=== PATIENT | male | born 1940 | race Caucasian/White ===

== ENCOUNTER 2017-07-22 07:15 | Emergency (ER) | payer MEDICARE ==
[~2017-07-22] VITALS: Ht 172.7 cm; Wt 112.5 kg
[~2017-07-22 07:15] MED LIST: ACE3 PO; ADV250/50 INH; AMOX-559 PO; AUG875 PO; CIP500 PO; DOXY-179 PO; DUL100/5PT INH; DUT0.5 PO; FESO8PT PO; FINA5TAB67 PO; FLUT10SP NS; FLUT16SP19 NS; GUAI100G4 PO; HYDR-3503 PO; HYDR-4309 PO; IBU200 PO; IBU800 PO; KET10 PO; LEV500 PO; MECL-111 PO; MECL25TA9 PO; MOMR ENA; ONDA4TAB PO; OXYGENHOME INH; POLY17PO25 PO; PRED20TA6 PO; RANI-324 PO; SCOT TD; TAM4 PO; TAMS0.4C70 PO; TRAZ-163 PO
--- NOTE | 2017-07-22 07:17 | ER Report ---
History and Physical Time Seen By MD: 07:17 HPI/ROS CC: Shortness of breath HPI: 76-year-old male with a past medical history of COPD on oxygen mainly at night but also 20 471 needed, diabetes type II on metformin, BPH, vertigo. Patient has increased shortness of breath over the last week. He is requiring more oxygen use with his home nasal cannula. He presents to the emergency department being able to talk in 2-3 word sentences. His SaO2 is 74% on room air. He denies any fever or chills. He is afebrile in the emergency department. He definitely is with expiratory wheeze. Activity makes it worse rest makes it better. His discomfort level is a 7 out of 10. He denies any chest pain chest pressure, diaphoresis, palpitations. He denies any sick contacts. ROS: 12 point review of systems essentially negative other than what's mentioned in history of present illness. NURSES AND OLD MEDICAL RECORDS: Reviewed PMH: Reviewed SURGICAL HX: Reviewed FAMILY HX: Noncontributory SOCIAL HX: He denies smoking alcohol or illicit drugs. She lives at home and is . VITAL SIGNS: Reviewed CONSTITUTIONAL: 76-year-old male in moderate to severe distress. PHYSICAL EXAM: HEENT: Pupils equal round reactive to light and accommodate, EOMI, tympanic membranes pearly white umbo present with good light reflex. Lips dry mucous membranes moist gums nonbleeding uvula midline and rises equally with phonation, oropharynx noninjected, teeth intact. NECK: Neck supple, thyroid not appreciated, anterior and posterior cervical lymphadenopathy not appreciated. Trachea midline and rises equally with phonation. CARDIAC: S1-S2 regular rate rhythm no murmurs rubs or gallops. LUNGS: Lungs rhonchi bilaterally with expiratory wheezes. Decreased air movement. ABDOMEN: Abdomen soft and obese, nondistended, bowel sounds active in all 4 quadrants, no bruits noted, no CVA tenderness. MUSCULOSKELETAL: Strength 5 out of 5 x 4 extremities, no deformities noted. 2+ bilateral lower leg edema to the knees. NEUROLOGIC: Patient alert and oriented by 3 Allergies: Coded Allergies: cefuroxime (Verified Allergy, Unknown, 07/22/17) Home Meds Active Scripts Levofloxacin 750 Mg Tab (LEVAQUIN 750 MG TAB) 750 Mg Tablet, 750 MG PO QDAY for 10 Days, #10 TAB Prov:HILARIO LANE MD 07/22/17 Prednisone 10 Mg Tab (PREDNISONE 10 MG TAB) 10 Mg Tablet, 50 MG PO QDAY, #47 TAB 50 mg by mouth daily for 3 days then 40 mg by mouth daily for 3 days then 30 mg by mouth daily for 3 days then 20 mg by mouth daily for 3 days then 10 mg by mouth daily for 3 days then 5 mg by mouth daily for 3 days. Prov:HILARIO LANE MD 07/22/17 Reported Medications Metformin Hcl (METFORMIN HCL) 500 Mg Tablet, 1 TAB PO QDAY, TAB 07/22/17 Trazodone Hcl (TRAZODONE HCL) 100 Mg Tablet, 100 MG PO QHS PRN, TAB 01/27/17 Tamsulosin Hcl (TAMSULOSIN HCL) 0.4 Mg Cap.er.24h, 0.4 MG PO QDAY, CAP 01/27/17 Oxygen (OXYGEN) Inha, 0 INH continuous, L 01/27/17 Finasteride (FINASTERIDE) 5 Mg Tablet, 5 MG PO QDAY 01/27/17 Mometasone/Formoterol (DULERA 100 MCG/5 MCG INHALER) 13 Gm Inh, 13 GM INH BID, INH 01/27/17 Discontinued Reported Medications Ranitidine Hcl (ZANTAC) 150 Mg Tablet, 150 MG PO DAILY, TAB 01/27/17 Fesoterodine Fumarate (TOVIAZ) 8 Mg Tabsr, 8 MG PO QDAY 01/27/17 Guaifenesin (MUCINEX) Unknown Strength Gran.pack, PO 01/27/17 Polyethylene Glycol 3350 (MIRALAX) 17 Gm Powd.pack, 17 GM PO, PKT 01/27/17 Discontinued Scripts Fluticasone Prop 50 Mcg Ns (FLONASE 50 MCG NS) 16 Gm [place].susp, 2 SPRAYS NS QDAY for 30 Days, #1 BOT 3 Refills Prov:ANAY NELSON JR, MD 02/22/17 Hx Smoking: Yes Smoking Status: Former Smoker Hx Substance Use Disorder: No Hx Alcohol Use: Yes (RARELY) Constitutional Vital Sign - Last 24 Hours 07/22/17 07/22/17 07/22/17 07/22/17 07:18 07:18 07:46 07:46 Temp 98.6 Pulse 70 63 Resp 30 18 B/P (MAP) 156/82 Pulse Ox 74 96 O2 Delivery Room Air Oxy Mask O2 Flow Rate 3.0 2.0 Medical Decision Making Data Points Result Diagram: 07/22/17 0734 07/22/17 0734 Laboratory Hematology Test 07/22/17 07:34 07/22/17 09:05 Red Blood Count 4.88 M/uL (4.00-5.60) Mean Corpuscular Volume 97.0 fL (80.0-96.0) Mean Corpuscular Hemoglobin 32.6 pg (26.0-33.0) Mean Corpuscular Hemoglobin Concent 33.6 g/dL (32.0-36.0) Red Cell Distribution Width 16.2 % (11.5-14.5) Mean Platelet Volume 8.2 fL (7.2-11.1) Neutrophils (%) (Auto) 62.9 % (39.4-72.5) Lymphocytes (%) (Auto) 21.0 % (17.6-49.6) Monocytes (%) (Auto) 10.1 % (4.1-12.4) Eosinophils (%) (Auto) 4.6 % (0.4-6.7) Basophils (%) (Auto) 1.4 % (0.3-1.4) Nucleated RBC Relative Count (auto) 0.1 /100WBC Neutrophils # (Auto) 3.8 K/uL (2.0-7.4) Lymphocytes # (Auto) 1.3 K/uL (1.3-3.6) Monocytes # (Auto) 0.6 K/uL (0.3-1.0) Eosinophils # (Auto) 0.3 K/uL (0.0-0.5) Basophils # (Auto) 0.1 K/uL (0.0-0.1) Nucleated RBC Absolute Count (auto) 0.00 K/uL Prothrombin Time 13.5 seconds (12.0-14.4) Prothromb Time International Ratio 1.03 Activated Partial Thromboplast Time 31 seconds (23-35) D-Dimer Quantitative (PE/DVT) 0.27 ug/ml (0-0.50) Sodium Level 139 mmol/L (137-145) Potassium Level 4.2 mmol/L (3.5-5.0) Chloride Level 102 mmol/L (98-107) Carbon Dioxide Level 29 mmol/L (22-30) Blood Urea Nitrogen 13 mg/dl (9-21) Creatinine 0.90 mg/dl (0.66-1.25) Glomerular Filtration Rate Calc > 60.0 Random Glucose 128 mg/dl (75-110) Calcium Level 8.9 mg/dl (8.4-10.2) Magnesium Level 1.8 mg/dl (1.7-2.2) Total Bilirubin 1.0 mg/dl (0.2-1.3) Aspartate Amino Transf (AST/SGOT) 21 U/L (0-35) Alanine Aminotransferase (ALT/SGPT) 24 U/L (0-56) Alkaline Phosphatase 53 U/L (0-126) Troponin I < 0.012 ng/ml B-Type Natriuretic Peptide 9 pg/ml (0-100) Total Protein 7.1 gm/dl (6.3-8.2) Albumin 3.5 g/dl (3.5-5.0) Influenza Type A Antigen Negative (NEGATIVE) Influenza Type B Antigen Negative (NEGATIVE) Chemistry Test 07/22/17 07:34 07/22/17 09:05 White Blood Count 6.0 k/uL (4.5-11.0) Red Blood Count 4.88 M/uL (4.00-5.60) Hemoglobin 15.9 g/dL (14.0-18.0) Hematocrit 47.3 % (42.0-52.0) Mean Corpuscular Volume 97.0 fL (80.0-96.0) Mean Corpuscular Hemoglobin 32.6 pg (26.0-33.0) Mean Corpuscular Hemoglobin Concent 33.6 g/dL (32.0-36.0) Red Cell Distribution Width 16.2 % (11.5-14.5) Platelet Count 188 K/uL (150-450) Mean Platelet Volume 8.2 fL (7.2-11.1) Neutrophils (%) (Auto) 62.9 % (39.4-72.5) Lymphocytes (%) (Auto) 21.0 % (17.6-49.6) Monocytes (%) (Auto) 10.1 % (4.1-12.4) Eosinophils (%) (Auto) 4.6 % (0.4-6.7) Basophils (%) (Auto) 1.4 % (0.3-1.4) Nucleated RBC Relative Count (auto) 0.1 /100WBC Neutrophils # (Auto) 3.8 K/uL (2.0-7.4) Lymphocytes # (Auto) 1.3 K/uL (1.3-3.6) Monocytes # (Auto) 0.6 K/uL (0.3-1.0) Eosinophils # (Auto) 0.3 K/uL (0.0-0.5) Basophils # (Auto) 0.1 K/uL (0.0-0.1) Nucleated RBC Absolute Count (auto) 0.00 K/uL Prothrombin Time 13.5 seconds (12.0-14.4) Prothromb Time International Ratio 1.03 Activated Partial Thromboplast Time 31 seconds (23-35) D-Dimer Quantitative (PE/DVT) 0.27 ug/ml (0-0.50) Glomerular Filtration Rate Calc > 60.0 Calcium Level 8.9 mg/dl (8.4-10.2) Magnesium Level 1.8 mg/dl (1.7-2.2) Total Bilirubin 1.0 mg/dl (0.2-1.3) Aspartate Amino Transf (AST/SGOT) 21 U/L (0-35) Alanine Aminotransferase (ALT/SGPT) 24 U/L (0-56) Alkaline Phosphatase 53 U/L (0-126) Troponin I < 0.012 ng/ml B-Type Natriuretic Peptide 9 pg/ml (0-100) Total Protein 7.1 gm/dl (6.3-8.2) Albumin 3.5 g/dl (3.5-5.0) Influenza Type A Antigen Negative (NEGATIVE) Influenza Type B Antigen Negative (NEGATIVE) Coagulation Test 07/22/17 07:34 Prothrombin Time 13.5 seconds Prothromb Time International Ratio 1.03 Activated Partial Thromboplast Time 31 seconds D-Dimer Quantitative (PE/DVT) 0.27 ug/ml Urinalysis Test 07/22/17 09:05 EKG/Imaging EKG Interpretation Normal sinus rhythm, ventricular rate 64 bpm, DC interval 160 formally 6, QRS duration 104 ms, QT 386 9 seconds, QTC 398 ms. Imaging Chest x-ray: IMPRESSION: 1. Course basilar bronchitic/atelectatic/scarring changes at the lung bases.. No infiltrates consolidations or effusions. No significant change compared to previous study ED Course/Re-evaluation ED Course All labs within normal limits. Influenza A and B are negative. Nurse Transition was unable to obtain ABGs. Chest x-ray did not show any acute infiltrates or consolidation. Old scarring is present. Patient responded very well to DuoNeb treatments and IV Solu-Medrol. Patient continued to use his oxygen at home. Patient will be discharged to home on escalating doses of steroids and Levaquin. Levaquin will be added to see fragility of the patient's lungs. Patient will plan and in agreement. Re-evaluation Medical decision-making included but not excluded to pneumonia, COPD exacerbation, bronchitis. Decision to Disposition Date: Jul 22, 2017 Decision to Disposition Time: 09:13 Depart Departure Latest Vital Signs Vital Signs Date Time Temp Pulse Resp B/P (MAP) Pulse Ox O2 Delivery O2 Flow Rate FiO2 07/22/17 07:46 96 Oxy Mask 2.0 07/22/17 07:46 63 18 07/22/17 07:18 98.6 156/82 Impression: Primary Impression: Bronchitis Condition: Improved Disposition: HOME OR SELF-CARE New Scripts Levofloxacin 750 Mg Tab (LEVAQUIN 750 MG TAB) 750 Mg Tablet 750 MG PO QDAY for 10 Days, #10 TAB Prov: HILARIO LANE MD 07/22/17 Prednisone 10 Mg Tab (PREDNISONE 10 MG TAB) 10 Mg Tablet 50 MG PO QDAY, #47 TAB 50 mg by mouth daily for 3 days then 40 mg by mouth daily for 3 days then 30 mg by mouth daily for 3 days then 20 mg by mouth daily for 3 days then 10 mg by mouth daily for 3 days then 5 mg by mouth daily for 3 days. Prov: HILARIO LANE MD 07/22/17 Patient Instructions: Acute Bronchitis (ED) Additional Instructions: You have been given prednisone take as directed. Given given Levaquin take as directed. Follow-up with your regular physician. Do not lift any heavy weights while on Levaquin. This may weaken your ligaments and cause ligament rupture follow-up with your regular physician. I and the staff wanted to thank you for allowing us to take care of your needs today in the emergency department at [facility]. We have tried to answer all of your questions and concerns. Please feel free to return to the emergency department for any further concerns or unanswered questions. HILARIO LANE MD Jul 22, 2017 07:17
[2017-07-22] MEDS ORDERED: METF-410 PO (07:26)
[2017-07-22] MEDS ORDERED: LEVOFLOXACIN 750 MG TAB PO ONE (07:30)
[2017-07-22] MEDS ORDERED: ALBUTEROL/IPRATROPIUM 3 ML NEB NEB SCH (07:30)
[2017-07-22 07:52] LABS: PLATELET COUNT, AUTOMATED 188 K/uL (150-450)
--- NOTE | 2017-07-22 08:12 | EKG ---
FACILITY: [facility] - [place] PATIENT NAME: DIANE JENKINS : [id number] MR: [id number] V: [id number] EXAM DATE: ORDERING PHYSICIAN: HILARIO LANE TECHNOLOGIST: Daniel Freedman Reason : Blood Pressure : / mmHG Vent. Rate : 064 BPM Atrial Rate : 064 BPM P-R Int : 164 ms QRS Dur : 104 ms QT Int : 386 ms P-R-T Axes : 060 074 064 degrees QTc Int : 398 ms Normal sinus rhythm Normal ECG When compared with ECG of 10-JUL-2016 13:32, No significant change was found Confirmed by DIANE NAILS ([id number]) on 07/22/2017 11:25:21 AM Referred By: Confirmed By:DIANE NAILS
[2017-07-22 08:53] LABS: INR 1.03
--- NOTE | 2017-07-22 08:53 | RADIOLOGY IMAGING REPORT ---
FACILITY: [facility] PATIENT NAME: Cedrick Cantu : 1940 MR: [id number] V: [id number] EXAM DATE: ORDERING PHYSICIAN: HILARIO LANE TECHNOLOGIST: [place] [facility] [place]edrick Cantu : 1940 Visit/Account:[id number] Date of Sevice: 07/22/2017 CHEST PA AND LAT Additional pertinent History: Respiratory distress COMPARISON STUDIES: 07/10/2016 FINDINGS: Support lines and catheters: None Lungs and Pleura: Coarse bronchitic changes within the lower lung with focal areas of scarring/atele ctasis. No infiltrates or consolidations. No effusions. Heart and vasculature: Mild atherosclerotic disease at the aortic arch. [place] and Mediastinum: Negative. Bones and Chest wall: Negative. Upper Abdomen: Negative. IMPRESSION: 1. Course basilar bronchitic/atelectatic/scarring changes at the lung bases.. No infiltrates consolid ations or effusions. No significant change compared to previous study Report Dictated By: Rob Nguyen MD at 07/22/2017 8:48 AM Report E-Signed By: Rob Nguyen MD at 07/22/2017 8:50 AM WSN:[id number]
[2017-07-22] MEDS ORDERED: PRED-1 PO (09:14)
[2017-07-22] MEDS ORDERED: LEVO750T44 PO (09:14)
[2017-07-22 09:45] VITALS: BP 156/80
== END 2017-07-22 10:23 | disposition home or self-care (01) ==
LOC: ER 07:15
DX: J40 Bronchitis, not specified as acute or chronic (principal)
CPT/HCPCS: 36415; 71046; 81001; 83735; 83880; 84484; 85025; 85379; 85610; 85730; 87040; 87502; 93005; 94640; 99284; A9270; J7620; 82040; 82247; 82310; 82374; 82435; 82565; 82947; 84075; 84132; 84155; 84295; 84450; 84460; 84520

== ENCOUNTER → 2017-08-22 | Outpatient (CLI) | payer MEDICARE ==
[~2017-08-22] MED LIST changes: +LEVO750T44 PO; +METF-410 PO; +PRED-1 PO
== END ==
LOC: LAB 09:14
PROVIDERS: ATTEND Urology
DX: R97.20 Elevated prostate specific antigen [PSA] (principal)
CPT/HCPCS: 36415; 84153

== ENCOUNTER → 2017-09-06 | Outpatient (CLI) | payer MEDICARE ==
[~2017-09-06] MED LIST changes: +ALBU8.5H IH; +AZIT-17 PO; +CLIN60LO TP; +FLUT1BLS3
--- NOTE | 2017-09-06 16:20 | RADIOLOGY IMAGING REPORT ---
FACILITY: [facility] PATIENT NAME: Cedrick Cantu : 1940 MR: [id number] V: [id number] EXAM DATE: ORDERING PHYSICIAN: LONNY PIZANO TECHNOLOGIST: [place] [facility] [place] Cedrick Cantu : 1940 Visit/Account:[id number] Date of Sevice: 09/06/2017 Exam type: CHEST PA AND LAT History: copd Exacerbation Comparison: Generally 2017. Findings: Coarse linear stranding the lung bases appears slightly increased likely related to increasing atelec tasis. Chronic peribronchial thickening is again noted throughout the lungs. There is no evidence o f pleural effusions or overt pulmonary edema. Cardiac silhouette is borderline enlarged and unchange d. There are moderate degenerative changes at the right AC joint and mild to moderate joint changes of the thoracic spine IMPRESSION: 1. Increasing linear stranding in the lower lobes which may represent increasing atelectasis Chronic peribronchial thickening again noted Report Dictated By: Miladis Aaron MD at 09/06/2017 4:13 PM Report E-Signed By: Miladis Aaron MD at 09/06/2017 4:15 PM WSN:[email or web address]
== END ==
LOC: RAD 13:32
PROVIDERS: ATTEND Internal Medicine
DX: I51.7 Cardiomegaly (principal); R91.8 Other nonspecific abnormal finding of lung field; M51.34 Other intervertebral disc degeneration, thoracic region
CPT/HCPCS: 71046

== ENCOUNTER 2017-09-29 12:21 | Emergency (ER) | payer MEDICARE ==
[~2017-09-29 12:21] MED LIST changes: +ARFO15VI IH; +BUDE0.5A6 IH; +IPRA0.2S8 IH; +IPRA3AMP21 IH; +NEBU1EAC25 INH
--- NOTE | 2017-09-29 12:27 | ER Report ---
History and Physical Time Seen By MD: 12:25 (LM BURLESON MD) HPI/ROS CHIEF COMPLAINT: Chest pain, dizziness, leg pain HISTORY OF PRESENT ILLNESS: Patient is a 77-year-old male who comes to the emergency department with multiple complaints including chest pain that began at 10:30 this morning and resolved proximally 10-15 minutes later. The pain was nonexertional and is described as a pressure-like sensation. He further admits to some shortness of breath. He also complains of some constipation although he did have a bowel movement today. And also complains of bilateral lower extremity cramping and some swelling. He states that at nighttime he feels he can't sleep secondary to the cramping and discomfort in his legs. REVIEW OF SYSTEMS: Constitutional: No fever, no chills. Eyes: No discharge. ENT: No sore throat. Cardiovascular: Chest pain that began at rest at approximately 10:30 this morning. Respiratory: More short of breath than usual. Gastrointestinal: No abdominal pain, no vomiting. Genitourinary: No hematuria. Musculoskeletal: Bilateral lower extremity cramping Skin: No rashes. Neurological: No headache. (LM BURLESON MD) Allergies: Coded Allergies: cefuroxime (Verified Allergy, Unknown, 09/29/17) Home Meds Active Scripts Ipratropium [place] (IPRATROPIUM BROMIDE) 0.2 Mg/1 Ml Solution, 0.2 MG IH TID Y for SHORTNESS OF BREATH, #90 INH 9 Refills Prov:LONNY PIZANO MD 09/16/17 Oxygen (OXYGEN) Inha, 3 L INH DAILY, #3 L Prov:LONNY PIZANO MD 09/13/17 Nebulizer (Aeroneb Go Nebuliser) 1 Each Each, UNIT INH BID, #1 Needs nebulizer machine Diagnoses COPD Length of stay lifelong Prov:LONNY PIZANO MD 09/13/17 Arformoterol Tartrate (BROVANA) 15 Mcg/2 Ml Vial.neb, 15 MCG IH BID, #60 INFUS.SET 9 Refills Prov:LONNY PIZAON MD 09/13/17 Albuterol Sulfate 90 Mcg/Act (PROAIR HFA 90 MCG/ACT) 8.5 Gm Hfa.aer.ad, 2 PUFF IH Q4-6H, #1 INHALER 6 Refills Prov:LONNY PIZANO MD 09/06/17 Reported Medications Metformin Hcl (METFORMIN HCL) 500 Mg Tablet, 1 TAB PO BID, TAB 07/22/17 Tamsulosin Hcl (TAMSULOSIN HCL) 0.4 Mg Cap.er.24h, 0.4 MG PO QDAY, CAP 01/27/17 Oxygen (OXYGEN) Inha, 0 INH continuous, L 01/27/17 Finasteride (FINASTERIDE) 5 Mg Tablet, 5 MG PO QDAY 01/27/17 Discontinued Reported Medications Clindamycin Phosphate (CLINDAMYCIN PHOSPHATE) Unknown Strength Lotion, TP 09/06/17 Discontinued Scripts Prednisone (PREDNISONE) 20 Mg Tablet, 20 MG PO DIRECTED, #30 TAB 1 tablet 3 x day x 4 days 1 tab. twice a day x 4 days 1 tab. once a day x 4 days 0.5 tabs once a day x 4 days Prov:LONNY PIZANO MD 09/13/17 Budesonide (BUDESONIDE) 0.5 Mg/2 Ml Ampul.neb, 0.5 MG IH BID, #90 ML 9 Refills Prov:LONNY PIZANO MD 09/13/17 Past Medical/Surgical History Past medical history for COPD and wears 3 L of oxygen chronically. History of peptic ulcer disease, history of kidney stones history of benign prostatic hypertrophy. History of type II diabetes. (LM BURLESON MD) Hx Smoking: Yes Smoking Status: Former Smoker Hx Substance Use Disorder: No Hx Alcohol Use: Yes (RARELY) (LM BURLESON MD) Constitutional Vital Sign - Last 24 Hours 09/29/17 09/29/17 09/29/17 09/29/17 12:22 12:22 12:29 12:51 Temp 99.0 Pulse 96 91 Resp 18 12 B/P (MAP) 129/67 129/67 (87) Pulse Ox 91 89 O2 Delivery Room Air O2 Flow Rate 3.0 09/29/17 09/29/17 09/29/17 09/29/17 13:00 13:21 16:01 16:05 Pulse 92 84 Resp 16 B/P (MAP) 117/66 (83) 103/59 (74) Pulse Ox 90 95 09/29/17 09/29/17 09/29/17 09/29/17 16:10 16:15 16:20 16:25 Pulse 78 75 78 77 Pulse Ox 93 96 96 93 09/29/17 09/29/17 09/29/17 16:30 16:35 16:40 Pulse 78 77 81 Pulse Ox 96 96 94 (LAURCON,ANSELMO V DO) Physical Exam General/Constitutional: Patient is awake, alert, nontoxic and in no acute respiratory distress. Head: Normocephalic and atraumatic. Eyes: Conjunctival clear, Pupils are equal and reactive to light. Extraocular muscles are intact and symmetrical. Sclera are clear and anicteric. Ears:External canals are clear. Tympanic membranes are clear with normal landmarks and light reflex. Nares: No rhinorrhea or bleeding. Turbinates are pink and moist. Oropharyngeal: Mucous membranes are moist. There is no pharyngeal erythema or exudate. There are no palatal petechiae. Uvula is midline and symmetrical. Neck: Supple, no adenopathy. Cardiovascular: Heart is regular rate and rhythm without audible murmurs, rubs or gallops. Pulmonary: Lungs are clear to auscultation bilaterally. There are no wheezes, rales, or rhonchi. Chest rise is symmetrical Abdomen: Soft, nontender, no guarding or peritoneal signs. Extremities: No gross deformities, No peripheral cyanosis. Able to move all 4 extremities. Neuro: Alert and oriented X3, Cranial nerves 2 thru 12 are intact and symmetrical. Patient has normal gait. Skin: No rashes, skin is warm dry and well perfused. (LM BURLESON MD) Medical Decision Making Data Points Result Diagram: 09/29/17 1305 09/29/17 1305 Laboratory Hematology Test 09/29/17 13:05 09/29/17 16:00 Red Blood Count 4.68 M/uL (4.00-5.60) Mean Corpuscular Volume 96.1 fL (80.0-96.0) Mean Corpuscular Hemoglobin 32.9 pg (26.0-33.0) Mean Corpuscular Hemoglobin Concent 34.2 g/dL (32.0-36.0) Red Cell Distribution Width 15.7 % (11.5-14.5) Mean Platelet Volume 8.6 fL (7.2-11.1) Neutrophils (%) (Auto) 78.9 % (39.4-72.5) Lymphocytes (%) (Auto) 6.3 % (17.6-49.6) Monocytes (%) (Auto) 13.5 % (4.1-12.4) Eosinophils (%) (Auto) 0.5 % (0.4-6.7) Basophils (%) (Auto) 0.8 % (0.3-1.4) Nucleated RBC Relative Count (auto) 0.0 /100WBC Neutrophils # (Auto) 7.0 K/uL (2.0-7.4) Lymphocytes # (Auto) 0.6 K/uL (1.3-3.6) Monocytes # (Auto) 1.2 K/uL (0.3-1.0) Eosinophils # (Auto) 0.0 K/uL (0.0-0.5) Basophils # (Auto) 0.1 K/uL (0.0-0.1) Nucleated RBC Absolute Count (auto) 0.00 K/uL Prothrombin Time 14.2 seconds (12.0-14.4) Prothromb Time International Ratio 1.09 Activated Partial Thromboplast Time 30 seconds (23-35) Sodium Level 134 mmol/L (137-145) Potassium Level 4.0 mmol/L (3.5-5.0) Chloride Level 100 mmol/L (98-107) Carbon Dioxide Level 26 mmol/L (22-30) Blood Urea Nitrogen 16 mg/dl (9-21) Creatinine 1.10 mg/dl (0.66-1.25) Glomerular Filtration Rate Calc > 60.0 Random Glucose 107 mg/dl (75-110) Calcium Level 8.6 mg/dl (8.4-10.2) Total Bilirubin 1.3 mg/dl (0.2-1.3) Aspartate Amino Transf (AST/SGOT) 14 U/L (0-35) Alanine Aminotransferase (ALT/SGPT) 28 U/L (0-56) Alkaline Phosphatase 51 U/L (0-126) B-Type Natriuretic Peptide 11 pg/ml (0-100) Total Protein 6.2 gm/dl (6.3-8.2) Albumin 3.2 g/dl (3.5-5.0) Lipase 27 U/L (23-300) Urine Color Yellow Urine Clarity Clear Urine pH 6.0 pH (4.8-9.5) Urine Specific [place] 1.021 Urine Protein Negative mg/dL (NEGATIVE) Urine Glucose (UA) Negative mg/dL (NEGATIVE) Urine Ketones Negative mg/dL (NEGATIVE) Urine Blood Negative (NEGATIVE) Urine Nitrite Negative (NEGATIVE) Urine Bilirubin Negative (NEGATIVE) Urine Urobilinogen 4.0 mg/dL (0.2-1.9) Urine Leukocyte Esterase Negative (NEGATIVE) Urine RBC 3 /HPF (0-2/HPF) Urine WBC 4 /HPF (0-5/HPF) Urine Squamous Epithelial Cells Many /LPF (</=FEW) Urine Transitional Epithelial Cells Few /LPF (NONE-FEW) Urine Bacteria Few /HPF (NONE-FEW) Urine Mucus None /HPF (NONE-FEW) Troponin I < 0.012 ng/ml Chemistry Test 09/29/17 13:05 09/29/17 16:00 White Blood Count 8.9 k/uL (4.5-11.0) Red Blood Count 4.68 M/uL (4.00-5.60) Hemoglobin 15.4 g/dL (14.0-18.0) Hematocrit 44.9 % (42.0-52.0) Mean Corpuscular Volume 96.1 fL (80.0-96.0) Mean Corpuscular Hemoglobin 32.9 pg (26.0-33.0) Mean Corpuscular Hemoglobin Concent 34.2 g/dL (32.0-36.0) Red Cell Distribution Width 15.7 % (11.5-14.5) Platelet Count 129 K/uL (150-450) Mean Platelet Volume 8.6 fL (7.2-11.1) Neutrophils (%) (Auto) 78.9 % (39.4-72.5) Lymphocytes (%) (Auto) 6.3 % (17.6-49.6) Monocytes (%) (Auto) 13.5 % (4.1-12.4) Eosinophils (%) (Auto) 0.5 % (0.4-6.7) Basophils (%) (Auto) 0.8 % (0.3-1.4) Nucleated RBC Relative Count (auto) 0.0 /100WBC Neutrophils # (Auto) 7.0 K/uL (2.0-7.4) Lymphocytes # (Auto) 0.6 K/uL (1.3-3.6) Monocytes # (Auto) 1.2 K/uL (0.3-1.0) Eosinophils # (Auto) 0.0 K/uL (0.0-0.5) Basophils # (Auto) 0.1 K/uL (0.0-0.1) Nucleated RBC Absolute Count (auto) 0.00 K/uL Prothrombin Time 14.2 seconds (12.0-14.4) Prothromb Time International Ratio 1.09 Activated Partial Thromboplast Time 30 seconds (23-35) Glomerular Filtration Rate Calc > 60.0 Calcium Level 8.6 mg/dl (8.4-10.2) Total Bilirubin 1.3 mg/dl (0.2-1.3) Aspartate Amino Transf (AST/SGOT) 14 U/L (0-35) Alanine Aminotransferase (ALT/SGPT) 28 U/L (0-56) Alkaline Phosphatase 51 U/L (0-126) B-Type Natriuretic Peptide 11 pg/ml (0-100) Total Protein 6.2 gm/dl (6.3-8.2) Albumin 3.2 g/dl (3.5-5.0) Lipase 27 U/L (23-300) Urine Color Yellow Urine Clarity Clear Urine pH 6.0 pH (4.8-9.5) Urine Specific [place] 1.021 Urine Protein Negative mg/dL (NEGATIVE) Urine Glucose (UA) Negative mg/dL (NEGATIVE) Urine Ketones Negative mg/dL (NEGATIVE) Urine Blood Negative (NEGATIVE) Urine Nitrite Negative (NEGATIVE) Urine Bilirubin Negative (NEGATIVE) Urine Urobilinogen 4.0 mg/dL (0.2-1.9) Urine Leukocyte Esterase Negative (NEGATIVE) Urine RBC 3 /HPF (0-2/HPF) Urine WBC 4 /HPF (0-5/HPF) Urine Squamous Epithelial Cells Many /LPF (</=FEW) Urine Transitional Epithelial Cells Few /LPF (NONE-FEW) Urine Bacteria Few /HPF (NONE-FEW) Urine Mucus None /HPF (NONE-FEW) Troponin I < 0.012 ng/ml Coagulation Test 09/29/17 13:05 Prothrombin Time 14.2 seconds Prothromb Time International Ratio 1.09 Activated Partial Thromboplast Time 30 seconds Urinalysis Test 09/29/17 16:00 Urine Color Yellow Urine Clarity Clear Urine pH 6.0 pH (4.8-9.5) Urine Specific [place] 1.021 Urine Protein Negative mg/dL (NEGATIVE) Urine Glucose (UA) Negative mg/dL (NEGATIVE) Urine Ketones Negative mg/dL (NEGATIVE) Urine Blood Negative (NEGATIVE) Urine Nitrite Negative (NEGATIVE) Urine Bilirubin Negative (NEGATIVE) Urine Urobilinogen 4.0 mg/dL (0.2-1.9) Urine Leukocyte Esterase Negative (NEGATIVE) Urine RBC 3 /HPF (0-2/HPF) Urine WBC 4 /HPF (0-5/HPF) Urine Squamous Epithelial Cells Many /LPF (</=FEW) Urine Transitional Epithelial Cells Few /LPF (NONE-FEW) Urine Bacteria Few /HPF (NONE-FEW) Urine Mucus None /HPF (NONE-FEW) (ANSELMO FOOTE DO) ED Course/Re-evaluation Clinical Indication for ER IV: IV Access ED Course E times to the plan at this time will be to perform a cardiac workup including delta troponin. We'll obtain acute abdominal series secondary to both liquids or shortness of breath occasional cough and constipation. Because of the complaints of the legs we'll obtain both arterial and venous ultrasound. (LM BURLESON MD) Clinical Indication for ER IV: IV Access ED Course 09/29/2017 4:42:24 pm PTs venogram and arterial gram are non acute. PT feeling well. NO chest pain. pts second Troponin was negative. Pts xray does not show pneumonia. Pts lungs are clear without wheeze. . Pt feels comfortable going home "call my x she will pick me up". Decision to Disposition Date: Sep 29, 2017 Decision to Disposition Time: 16:46 (ANSELMO FOOTE DO) Depart Departure Latest Vital Signs Vital Signs Date Time Temp Pulse Resp B/P (MAP) Pulse Ox O2 Delivery O2 Flow Rate FiO2 09/29/17 16:40 81 94 09/29/17 16:01 103/59 (74) 09/29/17 13:21 16 09/29/17 12:22 3.0 09/29/17 12:22 99.0 Room Air (ANSELMO FOOTE DO) Impression: Primary Impression: Constipation Additional Impressions: Restless leg syndrome Chest pain Condition: Improved Disposition: HOME OR SELF-CARE Referrals: LONNY PIZANO MD (PCP) 2 Days Patient Instructions: Constipation (ED), Restless Legs Syndrome (DC) Additional Instructions: Follow up with your family doctor. Your labs today were stable. Your chest xray did not show pneumonia. Your legs have no clots. You may use miralax (over the counter) once a day to help you move your bowels if you feel constipated. Return for any concerns. Problem Qualifiers Primary Impression: Constipation Constipation type: unspecified constipation type Qualified Codes: K59.00 - Constipation, unspecified Additional Impressions: Chest pain Chest pain type: unspecified Qualified Codes: R07.9 - Chest pain, unspecified LM BURLESON MD Sep 29, 2017 12:27 ANSELMO FOOTE DO Sep 29, 2017 16:47
[2017-09-29] MEDS ORDERED: LORazepam 2 MG/ML VIAL IVP ONE (12:40)
--- NOTE | 2017-09-29 12:58 | EKG ---
FACILITY: [facility] - [place] PATIENT NAME: DIANE JENKINS : [id number] MR: [id number] V: [id number] EXAM DATE: ORDERING PHYSICIAN: LM BURLESON TECHNOLOGIST: THERESA Test Reason : DIZZINESS Blood Pressure : / mmHG Vent. Rate : 090 BPM Atrial Rate : 090 BPM P-R Int : 140 ms QRS Dur : 094 ms QT Int : 334 ms P-R-T Axes : 044 063 041 degrees QTc Int : 408 ms Normal sinus rhythm Normal ECG When compared with ECG of 22-JUL-2017 07:36, No significant change was found Confirmed by DIANE NAILS ([id number]) on 09/29/2017 4:46:09 PM Referred By: Confirmed By:DIANE NAILS
[2017-09-29 13:22] LABS: PLATELET COUNT, AUTOMATED 129 K/uL (150-450)
[2017-09-29 13:28] LABS: INR 1.09
--- NOTE | 2017-09-29 13:57 | RADIOLOGY IMAGING REPORT ---
FACILITY: [facility] PATIENT NAME: Cedrick Cantu : 1940 MR: [id number] V: [id number] EXAM DATE: ORDERING PHYSICIAN: LM BURLESON TECHNOLOGIST: Location: [facility] - [place] Patient: Cedrick Cantu : 1940 Visit/Account:[id number] Date of Sevice: 09/29/2017 Abdomen radiograph series INDICATION: Pain COMPARISON: September 06, 2017 chest radiographs FINDINGS: Frontal chest, two upright abdomen views and two supine abdomen views obtained. The cardiac silhouette is normal in size. No pneumothorax. Curvilinear right basilar scarring versu s subsegmental atelectasis as before. Decreased left basilar subsegmental atelectasis. Normal thora cic osseous structures. No free air. No dilated bowel loops, organomegaly or abnormal calcifications. Slight convexity righ t lumbar scoliosis. IMPRESSION: No acute finding. Report Dictated By: Emilio Covington MD at 09/29/2017 1:48 PM Report E-Signed By: Emilio Covington MD at 09/29/2017 1:53 PM WSN:[id number]
--- NOTE | 2017-09-29 16:21 | RADIOLOGY IMAGING REPORT ---
FACILITY: [facility] - [place] PATIENT NAME: Cedrick Cantu : 1940 MR: [id number] V: [id number] EXAM DATE: ORDERING PHYSICIAN: LM BURLESON TECHNOLOGIST: Location: [facility] - [place] Patient: Cedrick Cantu : 1940 Visit/Account:[id number] Date of Sevice: 09/29/2017 EXAMINATION: Doppler ultrasound deep veins bilateral lower extremities HISTORY: Pitting edema. COMPARISON: None. FINDINGS: Grayscale, duplex and color Doppler interrogation of the bilateral lower extremity deep veins from co mmon femoral vein to proximal calf was completed. The greater saphenous vein in the right and left pr oximal thigh was evaluated using similar technique. Right lower extremity: Common femoral vein: Negative. Femoral vein: Negative. Deep femoral vein: Negative. Popliteal vein: Negative. Visualized deep calf veins: Negative. Greater saphenous vein in the proximal thigh: Negative. Popliteal fossa: Negative. Waveforms: Normal respiratory phasicity. Mildly pulsatile venous waveforms. Left lower extremity: Common femoral vein: Negative. Femoral vein: Negative. Deep femoral vein: Negative. Popliteal vein: Negative. Visualized deep calf veins: Negative. Greater saphenous vein in the proximal thigh: Negative. Popliteal fossa: Negative. Waveforms: Normal respiratory phasicity. Mildly pulsatile venous waveforms. IMPRESSION: 1. No DVT of either lower extremity. 2. Mildly pulsatile venous waveforms. This can be seen with volume overload. Report Dictated By: Anna Acevedo MD at 09/29/2017 4:15 PM Report E-Signed By: Anna Acevedo MD at 09/29/2017 4:17 PM WSN:[id number]
--- NOTE | 2017-09-29 16:30 | RADIOLOGY IMAGING REPORT ---
FACILITY: [facility] - [place] PATIENT NAME: Cedrick Cantu : 1940 MR: [id number] V: [id number] EXAM DATE: ORDERING PHYSICIAN: LM BURLESON TECHNOLOGIST: Location: [facility] - [place] Patient: Cedrick Cantu : 1940 Visit/Account:[id number] Date of Sevice: 09/29/2017 EXAMINATION: Ultrasound bilateral lower extremity arterial duplex exam HISTORY: Claudication symptoms. COMPARISON: None. FINDINGS: Right lower extremity: Arteries are patent from the common femoral artery through the dorsalis pedis artery. Peak systolic velocities range from 105 cm/sec in the common femoral artery, to 146 cm/sec i n the distal posterior tibial artery, to 88 cm/sec in the dorsalis pedis artery. Atherosclerotic calc ifications in the common femoral artery. Triphasic waveforms. No visible stenosis. Left lower extremity: Arteries are patent from the common femoral artery through the dorsalis pedis a rtery. Peak systolic velocities range from 109 cm/sec in the common femoral artery, to 58 cm/sec in the dorsalis pedis artery. Atherosclerotic calcifications in the common femoral artery. Triphasic wav eforms. No visible stenosis. IMPRESSION: 1. Patent bilateral lower extremity arteries without visible stenosis. 2. Mild atherosclerotic calcifications of both common femoral arteries. Report Dictated By: Anna Acevedo MD at 09/29/2017 4:22 PM Report E-Signed By: Anna Acevedo MD at 09/29/2017 4:26 PM WSN:[id number]
[2017-09-29 16:50] VITALS: BP 126/71
== END 2017-09-29 16:53 | disposition home or self-care (01) ==
LOC: ER 12:27
DX: K59.00 Constipation, unspecified (principal); G25.81 Restless legs syndrome; R07.9 Chest pain, unspecified
CPT/HCPCS: 74022; 81001; 83690; 83880; 84484; 85025; 85610; 85730; 93005; 93925; 93970; 96374; 99284; J2060; 82040; 82247; 82310; 82374; 82435; 82565; 82947; 84075; 84132; 84155; 84295; 84450; 84460; 84520

== ENCOUNTER → 2017-11-18 | Outpatient (CLI) | payer MEDICARE ==
[~2017-11-18] MED LIST changes: -METF-410 PO; +METF-411 PO; -RANI-324 PO; +RANI-366 PO
== END ==
LOC: RESP 01:38
PROVIDERS: ATTEND Internal Medicine
DX: J98.4 Other disorders of lung (principal)
CPT/HCPCS: 94060; 94726; 94729

== ENCOUNTER → 2017-11-24 | Outpatient (CLI) | payer MEDICARE ==
--- NOTE | 2017-12-02 12:58 | RADIOLOGY IMAGING REPORT ---
FACILITY: [facility] PATIENT NAME: DIANE JENKINS : [id number] MR: [id number] V: [id number] EXAM DATE: [id number] ORDERING PHYSICIAN: GEORGI TAVARES TECHNOLOGIST: Myron Gore EXAMINATION:TWO-DIMENSIONAL ECHOCARDIOGRAPH REASON:CHEST PAIN/DYSPNEA 2D Measurements (normal values in centimeters) LV endLV endRV endVent.LV PostAorticLeftPercent DiastolicSystolicDiastolicSeptumWallRootAtriumShortening (3.5-5.7)(0.9-2.6)(0.6-1.1)(0.6-1.1)(2.0-3.7)(1.9-4.0)(25-35%) [id number]% STROKE VOLUME: 69ml ESTIMATED EJECTION FRACTION:64% PARASTERNAL LONG AXIS: View shows normal contractility of the interventricular septum & posterior wall. The aortic & mitral valves are grossly normal. Ascending aorta & left atrium are not dilated. PARASTERNAL SHORT AXIS: View at the level of the aortic valve shows trileaflet valve with normal excursion. Pulmonic valve was not well visualized but is grossly normal. Short axis view at the level of long term muscles shows normal contractility of all left ventricular segments. No pericardial effusion is noted. APICAL FOUR AND TWO CHAMBER: View shows normal contractility of the left ventricular apex & lateral wall. In the 4 chamber view right ventricular size, ejection fraction, tricuspid valve & right atrium are all normal. Apical 2 chamber view shows normal inferior & anterior wall contractility. SUBCOSTAL VIEW: View shows no evidence of any atrioseptal defect. Doppler data color flow imaging shows no evidence of aortic, mitral or tricuspid regurgitation where a Grade 2 diastolic dysfunction is suggested. OVERALL IMPRESSION: 1. Normal left ventricular size & ejection fraction of 60-65% without segmental wall motion abnormality. 2. No significant valvular heart disease. 3. Grade 2 diastolic dysfunction. Dictated by: Scott Baxter M.D. on 11/25/2017 at 15:32 Transcribed by: TRINY on 11/25/2017 at 17:21 Approved by: Scott Baxter M.D. on 12/02/2017 at 12:56 [facility] [employer]
== END ==
LOC: US 04:10
PROVIDERS: ATTEND Internal Medicine
DX: I50.30 Unspecified diastolic (congestive) heart failure (principal)
CPT/HCPCS: 93306

== ENCOUNTER 2018-01-16 19:33 | Emergency (ER) | payer MEDICARE ==
[~2018-01-16 19:33] MED LIST changes: +IPRA3AMP10 IH; -IPRA3AMP21 IH; -TRAZ-163 PO; +TRAZ100T31 PO
--- NOTE | 2018-01-16 19:41 | ER Report ---
History and Physical Time Seen By MD: 19:36 HPI/ROS CHIEF COMPLAINT: Right arm pain and swelling HISTORY OF PRESENT ILLNESS: 77-year-old male with a history of COPD and sleep apnea but does not were Cipro. He is O2 dependent. He now presents with right arm swelling since this morning. He woke up with his right arm swollen and painful. He notes pain primarily around the elbow. Has no history of cardiac disease. Patient notes gross edema of his entire right arm. Patient's never had a DVT or PE. Patient notes some arthritis. Patient notes no shortness of breath or diaphoresis. He has wheezy respirations, but its chronic for him with his COPD. He is on aggressive COPD management and is followed by Dr. Pizano REVIEW OF SYSTEMS: Respiratory: No cough, no dyspnea. Cardiovascular: No chest pain, no palpitations. Gastrointestinal: No vomiting, no abdominal pain. Musculoskeletal: As above Allergies: Coded Allergies: cefuroxime (Verified Allergy, Unknown, 01/16/18) Home Meds Active Scripts Prednisone (PREDNISONE) 20 Mg Tablet, 20 MG PO QDAY for reduction of arthritis inflamm for 7 Days, #5 Prov:DARÍO SANTIAGO DO 01/16/18 Hydrocodone Bit/Acetaminophen (NORCO 5-325 TABLET) 1 Each Tablet, 1 EACH PO Q4H Y for PAIN, #10 TAB Prov:DARÍO SANTIAGO DO 01/16/18 Ipratropium [place] (IPRATROPIUM BROMIDE) 0.2 Mg/1 Ml Solution, 0.2 MG IH TID Y for SHORTNESS OF BREATH, #90 INH 9 Refills Prov:LONNY PIZANO MD 09/16/17 Oxygen (OXYGEN) Inha, 3 L INH DAILY, #3 L Prov:LONNY PIZANO MD 09/13/17 Nebulizer (Aeroneb Go Nebuliser) 1 Each Each, UNIT INH BID, #1 Needs nebulizer machine Diagnoses COPD Length of stay lifelong Prov:LONNY PIZANO MD 09/13/17 Arformoterol Tartrate (BROVANA) 15 Mcg/2 Ml Vial.neb, 15 MCG IH BID, #60 INFUS.SET 9 Refills Prov:LONNY PIZANO MD 09/13/17 Albuterol Sulfate 90 Mcg/Act (PROAIR HFA 90 MCG/ACT) 8.5 Gm Hfa.aer.ad, 2 PUFF IH Q4-6H, #1 INHALER 6 Refills Prov:LONNY PIZANO MD 09/06/17 Reported Medications Metformin Hcl (METFORMIN HCL) 500 Mg Tablet, 1 TAB PO BID, TAB 07/22/17 Tamsulosin Hcl (TAMSULOSIN HCL) 0.4 Mg Cap.er.24h, 0.4 MG PO QDAY, CAP 01/27/17 Finasteride (FINASTERIDE) 5 Mg Tablet, 5 MG PO QDAY 01/27/17 Discontinued Reported Medications Oxygen (OXYGEN) Inha, 0 INH continuous, L 01/27/17 Past Medical/Surgical History Past Medical History Neurologic: Reports hx of: vertigo (chronic) Respiratory: Reports hx of: COPD Gastrointestinal: Reports hx of: peptic ulcer disease (treatment with antibiotics) other GI history (chronic constipation) Genitourinary: Reports hx of: benign prostatic hypertro kidney stones Musculoskeletal: Reports hx of: other musculoskeletal hx (history of lumbar disc disease) Endocrine: Reports hx of: diabetes type 2 Past Surgical History HEENT: Reports hx of: cataract extraction (bilateral) tonsillectomy Gastrointestinal: Reports hx of: appendectomy (1955) other GI surgery (Rectal Surgery) Genitourinary - Male: Reports hx of: vasectomy (1966) Musculoskeletal: Reports hx of: spinal surgery (1968) Reviewed Nurses Notes: Yes Old Medical Records Reviewed: Yes Hx Smoking: Yes Smoking Status: Former Smoker Hx Substance Use Disorder: No Hx Alcohol Use: Yes (RARELY) Constitutional Vital Sign - Last 24 Hours 01/16/18 01/16/18 01/16/18 01/16/18 19:38 19:45 19:48 20:00 Temp 98.5 Pulse 73 70 Resp 20 26 B/P (MAP) 158/69 133/74 (93) Pulse Ox 93 92 O2 Delivery Room Air O2 Flow Rate 3.0 01/16/18 01/16/18 01/16/18 01/16/18 20:03 20:18 20:30 20:33 Pulse 85 70 71 Resp 23 18 10 B/P (MAP) 127/75 (92) Pulse Ox 85 92 93 01/16/18 01/16/18 01/16/18 01/16/18 20:48 20:53 21:00 21:08 Pulse 65 65 67 Resp 14 13 11 B/P (MAP) 121/72 (88) Pulse Ox 93 93 93 01/16/18 01/16/18 01/16/18 01/16/18 21:23 21:30 21:38 21:53 Pulse 67 64 60 Resp 23 B/P (MAP) 136/69 (91) Pulse Ox 94 93 93 01/16/18 01/16/18 01/16/18 21:58 22:00 22:05 Pulse 64 62 B/P (MAP) 129/63 (85) Pulse Ox 93 93 Physical Exam Vital signs stable, afebrile, pulse ox normal at baseline 3 L General Appearance: The patient is alert, has no immediate need for airway protection and no current signs of toxicity. Mild distress HEENT: Pupils equal and round no injection. Oropharynx without redness or exudate, mucous. Membranes are moist Respiratory: Chest is non tender, lungs are clear to auscultation. Faint expiratory wheezing throughout lung jose, audible wheezes on breathing, chronic Cardiac: regular rate and rhythm, no murmur Gastrointestinal: Abdomen is soft and non tender, no masses, bowel sounds normal. Musculoskeletal: Neck: Neck is supple and non tender. Extremities have full range of motion and are non tender. The right upper extremity shows gross edema from the hand to the upper bicep region. There is no tenderness on palpation of the shoulder or movement of the shoulder. There is pain with movement of the right elbow. The right upper extremity is neurovascularly intact. Patient has puffy sausage-appearing digits from the edema. Skin: No rashes or lesions. DIFFERENTIAL DIAGNOSIS: After history and physical exam differential diagnosis was considered for right upper extremity, arthritis, cellulitis, DVT, cardiac ischemia Medical Decision Making Data Points Result Diagram: 01/16/18195601/16/181956 Laboratory Hematology Test 01/16/18 19:57 Red Blood Count 4.37 M/uL (4.00-5.60) Mean Corpuscular Volume 98.3 fL (80.0-96.0) Mean Corpuscular Hemoglobin 33.5 pg (26.0-33.0) Mean Corpuscular Hemoglobin Concent 34.1 g/dL (32.0-36.0) Red Cell Distribution Width 15.5 % (11.5-14.5) Mean Platelet Volume 7.9 fL (7.2-11.1) Neutrophils (%) (Auto) 59.4 % (39.4-72.5) Lymphocytes (%) (Auto) 22.5 % (17.6-49.6) Monocytes (%) (Auto) 14.2 % (4.1-12.4) Eosinophils (%) (Auto) 2.9 % (0.4-6.7) Basophils (%) (Auto) 1.0 % (0.3-1.4) Nucleated RBC Relative Count (auto) 0.1 /100WBC Neutrophils # (Auto) 3.9 K/uL (2.0-7.4) Lymphocytes # (Auto) 1.5 K/uL (1.3-3.6) Monocytes # (Auto) 0.9 K/uL (0.3-1.0) Eosinophils # (Auto) 0.2 K/uL (0.0-0.5) Basophils # (Auto) 0.1 K/uL (0.0-0.1) Nucleated RBC Absolute Count (auto) 0.01 K/uL Erythrocyte Sedimentation Rate 15 mm/HOUR (0-20) Prothrombin Time 13.8 seconds (12.0-14.4) Prothromb Time International Ratio 1.06 Activated Partial Thromboplast Time 31 seconds (23-35) D-Dimer Quantitative (PE/DVT) 0.27 ug/ml (0-0.50) Sodium Level 139 mmol/L (137-145) Potassium Level 4.0 mmol/L (3.5-5.0) Chloride Level 101 mmol/L (98-107) Carbon Dioxide Level 28 mmol/L (22-30) Blood Urea Nitrogen 16 mg/dl (9-21) Creatinine 0.90 mg/dl (0.66-1.25) Glomerular Filtration Rate Calc > 60.0 Random Glucose 153 mg/dl (75-110) Calcium Level 8.7 mg/dl (8.4-10.2) Total Bilirubin 0.9 mg/dl (0.2-1.3) Aspartate Amino Transf (AST/SGOT) 15 U/L (0-35) Alanine Aminotransferase (ALT/SGPT) 11 U/L (0-56) Alkaline Phosphatase 52 U/L (0-126) Troponin I < 0.012 ng/ml C-Reactive Protein 2.0 mg/dl (<1.0) B-Type Natriuretic Peptide < 5 pg/ml (0-100) Total Protein 7.0 g/dl (6.3-8.2) Albumin 3.9 g/dl (3.5-5.0) Chemistry Test 01/16/18 19:57 White Blood Count 6.6 k/uL (4.5-11.0) Red Blood Count 4.37 M/uL (4.00-5.60) Hemoglobin 14.6 g/dL (14.0-18.0) Hematocrit 42.9 % (42.0-52.0) Mean Corpuscular Volume 98.3 fL (80.0-96.0) Mean Corpuscular Hemoglobin 33.5 pg (26.0-33.0) Mean Corpuscular Hemoglobin Concent 34.1 g/dL (32.0-36.0) Red Cell Distribution Width 15.5 % (11.5-14.5) Platelet Count 163 K/uL (150-450) Mean Platelet Volume 7.9 fL (7.2-11.1) Neutrophils (%) (Auto) 59.4 % (39.4-72.5) Lymphocytes (%) (Auto) 22.5 % (17.6-49.6) Monocytes (%) (Auto) 14.2 % (4.1-12.4) Eosinophils (%) (Auto) 2.9 % (0.4-6.7) Basophils (%) (Auto) 1.0 % (0.3-1.4) Nucleated RBC Relative Count (auto) 0.1 /100WBC Neutrophils # (Auto) 3.9 K/uL (2.0-7.4) Lymphocytes # (Auto) 1.5 K/uL (1.3-3.6) Monocytes # (Auto) 0.9 K/uL (0.3-1.0) Eosinophils # (Auto) 0.2 K/uL (0.0-0.5) Basophils # (Auto) 0.1 K/uL (0.0-0.1) Nucleated RBC Absolute Count (auto) 0.01 K/uL Erythrocyte Sedimentation Rate 15 mm/HOUR (0-20) Prothrombin Time 13.8 seconds (12.0-14.4) Prothromb Time International Ratio 1.06 Activated Partial Thromboplast Time 31 seconds (23-35) D-Dimer Quantitative (PE/DVT) 0.27 ug/ml (0-0.50) Glomerular Filtration Rate Calc > 60.0 Calcium Level 8.7 mg/dl (8.4-10.2) Total Bilirubin 0.9 mg/dl (0.2-1.3) Aspartate Amino Transf (AST/SGOT) 15 U/L (0-35) Alanine Aminotransferase (ALT/SGPT) 11 U/L (0-56) Alkaline Phosphatase 52 U/L (0-126) Troponin I < 0.012 ng/ml C-Reactive Protein 2.0 mg/dl (<1.0) B-Type Natriuretic Peptide < 5 pg/ml (0-100) Total Protein 7.0 g/dl (6.3-8.2) Albumin 3.9 g/dl (3.5-5.0) Coagulation Test 01/16/18 19:57 Prothrombin Time 13.8 seconds Prothromb Time International Ratio 1.06 Activated Partial Thromboplast Time 31 seconds D-Dimer Quantitative (PE/DVT) 0.27 ug/ml EKG/Imaging EKG Interpretation 12 lead EK Rhythm: normal sinus rhythm [place]: normal QRS: normal ST segments: normal, no evidence of ischemia, dysrhythmia Imaging X-ray: Single view chest x-ray was obtained. I viewed the images myself on the PACS system. My interpretation of the images is: No infiltrate, no effusion, normal mediastinum. When compared to previous chest x-ray dated 09/06/17, no significant change The radiologist interpretation had no clinically significant variation from this interpretation. Results: Ultrasound of the venous Doppler right upper extremity was obtained. The results of the study are INDICATION: arm swelling and pain. DATE: 01/16/2018 9:54 PM. TECHNIQUE: VENOUS DOPP UPPER RIGHT EXTREM COMPARISON: None FINDINGS: The right internal jugular vein, subclavian vein, axillary vein, basilic vein, brachial veins, and cephalic vein are patent. IMPRESSION: No evidence of DVT in the right upper extremity. The study was read by the radiologist. I viewed the images myself on the PACS system. ED Course/Re-evaluation Clinical Indication for ER IV: IV Access ED Course Patient was admitted to an examination room. H&P was done. The differential diagnosis was considered. Patient with right arm swelling and pain. He thinks he slept on it wrong. He is focal edema. He has some chronic edema in his lower extremities. But never had edema and his arms before. He notes some pain in his elbow. Diagnostic evaluation is undertaken. Patient EKG chest x- ray. Diagnostic studies are unremarkable. The d-dimer returns negative. Ultrasound of the right upper extremity is negative for DVT. Patient's advised to elevate his arm. He is given low-dose prednisone for 5 days in case this is result of arthritis in the hand, wrist or elbow. Patient's given hydrocodone for pain relief, which he is taken before. He's advised to follow-up with his primary care doctor Basim if unimproved in 2-3 days for reevaluation Decision to Disposition Date: Jan 16, 2018 Decision to Disposition Time: 21:58 Depart Departure Latest Vital Signs Vital Signs Date Time Temp Pulse Resp B/P (MAP) Pulse Ox O2 Delivery O2 Flow Rate FiO2 01/16/18 22:05 62 93 01/16/18 22:00 129/63 (85) 01/16/18 21:23 23 01/16/18 19:45 3.0 01/16/18 19:38 98.5 Room Air Impression: Primary Impression: Swelling of right upper extremity Additional Impressions: Right arm pain History of COPD BPH (benign prostatic hyperplasia) Condition: Improved Disposition: HOME OR SELF-CARE Referrals: LONNY PIZANO MD (PCP) New Scripts Prednisone (PREDNISONE) 20 Mg Tablet 20 MG PO QDAY for reduction of arthritis inflamm for 7 Days, #5 Prov: DARÍO SANTIAGO DO 01/16/18 Hydrocodone Bit/Acetaminophen (NORCO 5-325 TABLET) 1 Each Tablet 1 EACH PO Q4H Y for PAIN, #10 TAB Prov: DARÍO SANTIAGO DO 01/16/18 Patient Instructions: Edema,Peripheral Additional Instructions: Elevate your right arm Apply heating pad to the affected areas Take ibuprofen 200 mg 2-3 tablets 3 times a day with food Use hydrocodone for severe pain Take prednisone 20 mg per day for 5 days Follow-up with Dr. Pizano if unimproved in 2-3 days Problem Qualifiers Additional Impressions: BPH (benign prostatic hyperplasia) Lower urinary tract symptom presence: symptoms present Lower urinary tract symptom detail: unspecified Qualified Codes: N40.1 - Benign prostatic hyperplasia with lower urinary tract symptoms DARÍO SANTIAGO DO Jan 16, 2018 19:41
[2018-01-16] MEDS ORDERED: fentaNYL CITR 100 MCG/2 ML AMP IVP ONE (19:45)
--- NOTE | 2018-01-16 20:01 | EKG ---
FACILITY: [facility] - [place] PATIENT NAME: DIANE JENKINS : [id number] MR: [id number] V: [id number] EXAM DATE: ORDERING PHYSICIAN: DARÍO SANTIAGO TECHNOLOGIST: JIMENEZ Test Reason : ARM PAIN Blood Pressure : / mmHG Vent. Rate : 073 BPM Atrial Rate : 073 BPM P-R Int : 152 ms QRS Dur : 096 ms QT Int : 392 ms P-R-T Axes : 061 073 060 degrees QTc Int : 431 ms Normal sinus rhythm Normal ECG When compared with ECG of 29-SEP-2017 12:49, T wave amplitude has decreased in Anterior leads Confirmed by DIANE NAILS ([id number]) on 01/17/2018 6:27:37 AM Referred By: Confirmed By:DIANE NAILS
[2018-01-16 20:05] LABS: PLATELET COUNT, AUTOMATED 163 K/uL (150-450)
[2018-01-16 20:18] LABS: INR 1.06
--- NOTE | 2018-01-16 21:19 | RADIOLOGY IMAGING REPORT ---
FAC[place] [facility] [place]IENT NAME: Cedrick Cantu : 1940 MR: [id number] V: [id number] EXAM DATE: ORDERING PHYSICIAN: DARÍO SANTIAGO TECHNOLOGIST: Location: [facility] Patient: Cedrick Cantu : 1940 Visit/Account:[id number] Date of Sevice: 01/16/2018 Portable chest, one view. HISTORY: Chest pain. COMPARISON: 09/06/2017. EKG leads project on the chest. The heart size is normal. The aortic knob is calcified. Pulmonary ves sels are normal. Mild streaky densities are present in the lung bases. The pleural surfaces are unrem arkable. No pneumothorax. The bones are osteopenic. Arthritic changes are present in the spine and sh oulders. IMPRESSION: Minimal bibasilar subsegmental atelectasis or pleural parenchymal scars. Aortic atherosclerosis. Otherwise no evidence of acute cardiopulmonary disease. Report Dictated By: Eliseo Monique MD at 01/16/2018 9:12 PM Report E-Signed By: Eliseo Monique MD at 01/16/2018 9:15 PM WSN:[id number]
[2018-01-16 22:00] VITALS: BP 129/63
[2018-01-16] MEDS ORDERED: predniSONE 20 MG TAB PO ONE (22:00)
[2018-01-16] MEDS ORDERED: ACET/HYDROC 5/325MG TH ER ONLY 2 TAB/BOTTLE PO ONE (22:00)
[2018-01-16] MEDS ORDERED: HYDR-4309 PO (22:01)
--- NOTE | 2018-01-16 22:01 | RADIOLOGY IMAGING REPORT ---
FACILITY: [facility] - [place] PATIENT NAME: Cedrick Cantu : 1940 MR: [id number] V: [id number] EXAM DATE: ORDERING PHYSICIAN: DARÍO SANTIAGO TECHNOLOGIST: Location: [facility] - [place] Patient: Cedrick Cantu : 1940 Visit/Account:[id number] Date of Sevice: 01/16/2018 INDICATION: arm swelling and pain. DATE: 01/16/2018 9:54 PM. TECHNIQUE: VENOUS DOPP UPPER RIGHT EXTREM COMPARISON: None FINDINGS: The right internal jugular vein, subclavian vein, axillary vein, basilic vein, brachial vei ns, and cephalic vein are patent. IMPRESSION: No evidence of DVT in the right upper extremity. Report Dictated By: Al Valdez MD at 01/16/2018 9:54 PM Report E-Signed By: Al Valdez MD at 01/16/2018 9:57 PM WSN:[id number]
[2018-01-16] MEDS ORDERED: PRED20TA6 PO (22:02)
== END 2018-01-16 22:21 | disposition home or self-care (01) ==
LOC: ER 19:52
DX: N40.1 Benign prostatic hyperplasia with lower urinary tract symptoms (principal); M79.601 Pain in right arm; M79.89 Other specified soft tissue disorders; J44.9 Chronic obstructive pulmonary disease, unspecified
CPT/HCPCS: 71045; 83880; 84484; 85025; 85379; 85610; 85651; 85730; 86140; 93005; 93971; 96374; 99284; J3010; J7512; 82040; 82247; 82310; 82374; 82435; 82565; 82947; 84075; 84132; 84155; 84295; 84450; 84460; 84520

== ENCOUNTER → 2018-06-06 | Outpatient (CLI) | payer MEDICARE ==
[~2018-06-06] MED LIST changes: -HYDR-4309 PO; +HYDR-653 PO; -METF-411 PO; +METF-450 PO; +METXR500 PO
[2018-06-06 10:39] LABS: PLATELET COUNT, AUTOMATED 169 K/uL (150-450)
--- NOTE | 2018-06-06 10:51 | EKG ---
FACILITY: [facility] - [place] PATIENT NAME: DIANE JENKINS : [id number] MR: [id number] V: [id number] EXAM DATE: ORDERING PHYSICIAN: LONNY PIZANO TECHNOLOGIST: CLARIBEL Freedman Reason : CHEST PAIN Blood Pressure : / mmHG Vent. Rate : 072 BPM Atrial Rate : 072 BPM P-R Int : 162 ms QRS Dur : 096 ms QT Int : 376 ms P-R-T Axes : 070 076 064 degrees QTc Int : 411 ms Normal sinus rhythm Normal ECG When compared with ECG of 16-JAN-2018 19:48, No significant change was found Confirmed by LONNY PIZANO ([id number]) on 06/07/2018 8:04:14 AM Referred By: TWILA Confirmed By:LONNY PIZANO
[2018-06-06 10:52] LABS: LDL CHOLESTEROL 84 mg/dl
== END ==
LOC: RESP 10:10
PROVIDERS: ATTEND Internal Medicine
DX: E11.9 Type 2 diabetes mellitus without complications (principal); J44.9 Chronic obstructive pulmonary disease, unspecified
CPT/HCPCS: 36415; 82040; 82247; 82310; 82374; 82435; 82465; 82565; 82947; 83036; 83718; 84075; 84132; 84155; 84295; 84443; 84450; 84460; 84478; 84520; 85025

== ENCOUNTER → 2018-07-17 | Outpatient (CLI) | payer MEDICARE ==
[~2018-07-17] MED LIST changes: +ATOR20TA65 PO; +FLU180SY11 IM; +GABA-547 PO; +PNEU0.5D3 IM; +SITA100T PO
[2018-07-17 14:20] LABS: PLATELET COUNT, AUTOMATED 167 K/uL (150-450)
--- NOTE | 2018-07-17 14:46 | RADIOLOGY IMAGING REPORT ---
FACILITY: [facility] - [place] PATIENT NAME: Cedrick Cantu : 1940 MR: [id number] V: [id number] EXAM DATE: ORDERING PHYSICIAN: LONNY PIZANO TECHNOLOGIST: Location: [facility] Patient: Cedrick Cantu : 1940 Visit/Account:[id number] Date of Sevice: 07/17/2018 Exam type: FOOT 3 VIEWS RIGHT History: pain both feet Comparison: None. Findings: Three views of the right foot demonstrates extensive degenerative changes at the right first tarsomet atarsal articulation. Moderate joint changes are seen throughout the interphalangeal joints. Soft t issue calcifications are seen along the plantar aspect of the heel and along the expected course of t he Achilles tendon. There is no evidence of acute fracture or dislocation IMPRESSION: 1. Degenerative changes the right foot as detailed above Report Dictated By: Miladis Aaron MD at 07/17/2018 2:40 PM Report E-Signed By: Miladis Aaron MD at 07/17/2018 2:42 PM WSN:[email or web address]
== END ==
LOC: LAB 14:00
PROVIDERS: ATTEND Internal Medicine
DX: J44.9 Chronic obstructive pulmonary disease, unspecified (principal); E11.9 Type 2 diabetes mellitus without complications; M79.671 Pain in right foot
CPT/HCPCS: 36415; 82040; 82247; 82310; 82374; 82435; 82565; 82947; 83036; 84075; 84132; 84155; 84295; 84450; 84460; 84520; 84550; 85025

== ENCOUNTER 2018-10-12 09:00 | Outpatient (RCR) | payer MEDICARE ==
[2018-10-19] MEDS ORDERED: FLUT16SP19 NS (09:37)
[2018-10-19] MEDS ORDERED: ALBU8.5H IH (09:37)
== END 2018-11-06 ==
LOC: CARD 09:00
PROVIDERS: ATTEND Internal Medicine
DX: J44.9 Chronic obstructive pulmonary disease, unspecified (principal); R07.9 Chest pain, unspecified; R09.02 Hypoxemia
CPT/HCPCS: G0424 ×18

== ENCOUNTER → 2018-10-25 | Outpatient (CLI) | payer MEDICARE | LOC: AUD 13:45 | PROVIDERS: ATTEND Nurse Practitioner Primary Care | DX: H91.93 Unspecified hearing loss, bilateral (principal) | CPT/HCPCS: 92557; 92570 ==

== ENCOUNTER → 2018-10-30 | Outpatient (CLI) | payer MEDICARE | LOC: LAB 08:54 | PROVIDERS: ATTEND Urology | DX: N40.1 Benign prostatic hyperplasia with lower urinary tract symptoms (principal); R97.20 Elevated prostate specific antigen [PSA] | CPT/HCPCS: 36415; 84153 ==

== ENCOUNTER 2018-11-14 11:15 | Outpatient (RCR) | payer MEDICARE ==
--- NOTE | 2018-10-26 13:15 | PT INITIAL EVALUATION ---
MEDICAL DIAGNOSIS: Benign paroxysmal postional vertigo TREATMENT DIAGNOSIS: same DATE OF ONSET: 09/08/18 SUBJECTIVE: Cedrick Cantu presents to physical therapy with complaints of dizziness that started approximately one year ago that went away on its own. However, during that time one year ago, he reports that he had two falls because of the dizziness that felt like the world was moving and he was not moving at all. He states that the dizziness return a little while ago, but is not as bad as it was the previous episode. He states that he has dizziness with turning his head up and down and left to right. He states that he would like for the dizziness to be completely abolished as soon as possible. REHAB PROBLEM LIST: PREVIOUS MEDICAL HISTORY: See EMR OCCUPATION: Retired OBJECTIVE: Special Tests: (-) OCULOMOTOR/VESTIBULAR TESTING: Spontaneous Nystagmus: Absent VOR Head Thrust (horizontal canal function): R: Negative, L: Negative Gaze- Evoked Nystagmus with fixation present:Absent VOR Head Thrust (posterior canal function): R: Positive, L: Negative Posterior Horizontal Head-Shaking Nystagmus ( - ) Gaze-Evoked Nystagmus with fixation suppressed: absent Smooth Pursuit Saccades VOR Cancellation: Normal POSITIONING TEST: Left Hallpike Unknown will test next session Right Hallpike + Roll Test + / - Unknown will test next session ASSESSMENT: Cedrick will benefit from skilled physical therapy addressing the listed impairments to improve function and QOL. His R posterior canal was positive with nystagmus and is independent with specific exercise to fully resolve that canal. Will test L posterior and R/L horizontal next session. Short Term Goals 1 week: Pt will demonstrate independence within his techniques to improve function and QOL. 4 weeks: Pt will demonstrate abolished dizziness with heading turning while sitting down to improve function and QOL. Patient's Goals to get rid of dizziness PLAN: Patient to be seen for Neuromuscular Re-ed Gait Trg/Balance Trg Home Exercise Program Therapeutic Activities 2x/Week for 4 weeks If you have any questions, comments, or concerns about this report or plan, please contact me at . Thank you, Edward Gupta, PT, DPT MTDD
--- NOTE | 2018-11-14 12:02 | PT PLAN OF CARE ---
Physician: TEJAS Phelan Patient is being seen: 2X/WEEK Therapist:Edward Gupta, PT, DPT Medical Diagnosis: Benign paroxysmal positional vertigo Treatment Diagnosis: same Date of Onset: 09/08/18 Date of Initial Evaluation: 10/26/18 Date patient was last seen: 11/14/18 Number of treatments: 5 Number of cancellations/No shows: 0 INTERVENTIONS: vestibular rehab GOALS: 1 week: Pt will demonstrate independence within his techniques to improve function and QOL. 4 weeks: Pt will demonstrate abolished dizziness with heading turning while sitting down to improve function and QOL. PATIENT'S GOAL: to get rid of dizziness Status of Patient's Goals: MET Patient Compliance: Excellent Prognosis: Reasons for continuing therapy: This is a discharge note foorlando Finneganz. He reports that he is doing well. He denies any dizziness. He reports independent with his home exercise program. He has demonstrated fully cleared posterior/anterior/horizontal canal and abolished nystagmus and abolished dizziness. He is independent with his home exercise program. He met all of his goals and will be discharged from PT. OBJECTIVE: Special Tests: (-) OCULOMOTOR/VESTIBULAR TESTING: Spontaneous Nystagmus: Absent VOR Head Thrust (horizontal canal function): R: Negative, L: Negative Gaze- Evoked Nystagmus with fixation present:Absent VOR Head Thrust (posterior canal function): R: Positive, L: Negative Posterior Horizontal Head-Shaking Nystagmus ( - ) Gaze-Evoked Nystagmus with fixation suppressed: absent Smooth Pursuit Saccades VOR Cancellation: Normal POSITIONING TEST: Left Hallpike Unknown will test next session Right Hallpike - Roll Test- If you have any questions, please contact me at [phone]. Thank you, Edward Gupta, PT, DPT [facility]
== END 2018-11-14 16:05 | disposition home or self-care (01) ==
LOC: PT 11:15
PROVIDERS: ATTEND Physician Assistant
DX: H81.13 Benign paroxysmal vertigo, bilateral (principal)
CPT/HCPCS: 97161